=== PATIENT | male | born 1990 | race Caucasian/White ===

== ENCOUNTER 2025-04-16 12:08 | Emergency (ER) | payer OTHER ==
[~2025-04-16] VITALS: Ht 172.7 cm; Wt 81.6 kg
[2025-04-16] MEDS ORDERED: ACETAMINOPHEN ES 500 MG TABLET ONE (12:45)
[2025-04-16] MEDS: ACETAMINOPHEN ES 500 MG TABLET PO ONE (12:50)
[2025-04-16 14:15] VITALS: BP 126/77; TEMP 98.2; O2SAT 99
== END 2025-04-16 14:44 | disposition home or self-care (01) ==
LOC: ER 12:15
DX: S02.85XA Fracture of orbit, unspecified, initial encounter for closed fracture (principal); Y04.0XXA Assault by unarmed brawl or fight, initial encounter; Y93.89 Activity, other specified; Y92.89 Other specified places as the place of occurrence of the external cause; Y99.8 Other external cause status
CPT/HCPCS: 70450-TC; 70486-TC